=== PATIENT | female | born 1995 | race Caucasian/White ===

== ENCOUNTER 2025-05-27 19:04 | Inpatient (IN) | payer MEDICAID ==
[~2025-05-27] VITALS: Ht 160 cm; Wt 76.2 kg
[2025-05-27] MEDS: SODIUM CHLORIDE 0.9% 2,000 ML IV ONE (20:07)
[2025-05-27 20:14] LABS: PLATELET COUNT (AUTO) 419 K/uL (150-450); RED BLOOD CELL COUNT(AUTO) 3.76 MIL/uL (4.00-5.20); RED CELL DISTRIBUTION WIDTH 16.1 % (11.5-14.5); WHITE BLOOD COUNT (AUTO) 13.6 K/uL (4.5-11.0)
[2025-05-27 20:21] LABS: CALCIUM, TOTAL 8.9 mg/dL (8.8-10.5); CREATININE 0.65 mg/dL (0.60-1.30); GLOMERULAR FILTR. RATE CALC > 60 mL/min (>60); SODIUM SERUM 145 mmol/L (136-145); UREA NITROGEN, BLOOD 7 mg/dL (7-18)
[2025-05-27 20:22] LABS: GLUCOSE,RANDOM 46 mg/dL (70-110)
[2025-05-27] MEDS ORDERED: DEXTROSE 50%-WATER 25 GM/50 ML SYRINGE IVP ONE (20:25)
[2025-05-27 20:26] LABS: ALCOHOL, BLOOD (SERUM) < 3 mg/dL (0-10)
[2025-05-27 20:29] LABS: TROPONIN I-HIGH SENSITIVITY 4 ng/L (<51)
[2025-05-27 20:31] LABS: PHOSPHORUS 4.0 mg/dL (2.5-4.9)
[2025-05-27 20:32] LABS: ASPARTATE AMINOTRANSFERASE 11 U/L (15-37); HCG,QUANTITATIVE 2 mIU/mL (0-6); TOTAL PROTEIN, SERUM 6.8 g/dL (6.4-8.2)
[2025-05-27] MEDS: DEXTROSE 50%-WATER 25 GM/50 ML SYRINGE IVP ONE (20:37)
[2025-05-27 20:41] LABS: LACTIC ACID 1.5 mmol/L (0.4-2.0)
[2025-05-27 20:41] LABS: GLUCOMETER DEV NAME(LOC) ER.7; GLUCOSE,POINT OF CARE 52 MG/DL (70-110)
[2025-05-27 21:16] LABS: GLUCOMETER DEV NAME(LOC) ER.7; GLUCOSE,POINT OF CARE 134 MG/DL (70-110)
[2025-05-27] MEDS ORDERED: FREM225S SQ (21:34)
[2025-05-27] MEDS ORDERED: PRUC2TAB2 PO (21:34)
[2025-05-27] MEDS ORDERED: DICY20TA95 PO (21:34)
[2025-05-27] MEDS ORDERED: INSU100V SQ (21:34)
[2025-05-27] MEDS ORDERED: FAMO20 PO (21:34)
[2025-05-27] MEDS ORDERED: TIZA-211 PO (21:34)
[2025-05-27] MEDS ORDERED: OMEP-148 PO (21:34)
[2025-05-27] MEDS ORDERED: HYOS-28 PO (21:34)
[2025-05-27] MEDS ORDERED: IVAB7.5T PO (21:34)
[2025-05-27] MEDS ORDERED: ROSU10TA98 PO (21:34)
[2025-05-27] MEDS ORDERED: PREG50 PO (21:34)
[2025-05-27] MEDS ORDERED: CLON0.2T PO (21:34)
[2025-05-27] MEDS ORDERED: QUET100T PO (21:34)
[2025-05-27 21:50] LABS: GLUCOMETER DEV NAME(LOC) ER.7; GLUCOSE,POINT OF CARE 114 MG/DL (70-110)
[2025-05-27 22:16] LABS: GLUCOMETER DEV NAME(LOC) ER.7; GLUCOSE,POINT OF CARE 99 MG/DL (70-110)
[2025-05-27 22:51] LABS: GLUCOMETER DEV NAME(LOC) ER.7; GLUCOSE,POINT OF CARE 98 MG/DL (70-110)
[2025-05-27 23:55] LABS: GLUCOMETER DEV NAME(LOC) ER.7; GLUCOSE,POINT OF CARE 94 MG/DL (70-110)
[2025-05-28 02:36] LABS: GLUCOMETER DEV NAME(LOC) ER.7; GLUCOSE,POINT OF CARE 91 MG/DL (70-110)
[2025-05-28 04:46] LABS: GLUCOMETER DEV NAME(LOC) ER.7; GLUCOSE,POINT OF CARE 93 MG/DL (70-110)
[2025-05-28 05:25] VITALS: BP 104/66; PULSE 99; RESP 17; TEMP 98.1; O2SAT 99
[2025-05-28 08:00] VITALS: BP 100/62; PULSE 96; RESP 18; TEMP 98; O2SAT 98
[2025-05-28] MEDS: NICOTINE 21 MG/24 HOUR PATCH TD SCH (09:20)
[2025-05-28 10:24] LABS: APPEARANCE,URINE CLEAR (CLEAR); GLUCOSE, URINE (UA) NEGATIVE (NEGATIVE); LEUKOCYTE ESTERASE ,URINE NEGATIVE (NEGATIVE); NITRATE,URINE NEGATIVE (NEGATIVE); OCCULT BLOOD,URINE NEGATIVE (NEGATIVE); PH,URINE DRUG SCREEN 7.5 (5.0-8.0); SPECIFIC GRAVITIY, URINE 1.011 (1.003-1.030)
[2025-05-28 10:29] LABS: ALCOHOL, URINE DRUG SCREEN NEGATIVE (NEGATIVE); AMPHET/METH SCREEN,URINE NEGATIVE (NEGATIVE); BARBITURATE SCREEN, URINE NEGATIVE (NEGATIVE); CANNABINOID SCREEN,URINE NEGATIVE (NEGATIVE); COCAINE SCREEN,URINE NEGATIVE (NEGATIVE); METHADONE SCREEN, URINE NEGATIVE (NEGATIVE)
[2025-05-28 16:19] VITALS: BP 101/70; PULSE 92; RESP 18; TEMP 98; O2SAT 97
[2025-05-28] MEDS ORDERED: DEXTROSE 50%-WATER 25 GM/50 ML SYRINGE IVP PRN (17:30)
[2025-05-28 19:20] VITALS: BP 130/85; PULSE 115; RESP 18; TEMP 99; O2SAT 100
[2025-05-28 20:00] VITALS: PULSE 98
[2025-05-28 20:40] LABS: GLUCOMETER DEV NAME(LOC) 6N.2C; GLUCOSE,POINT OF CARE 112 MG/DL (70-110)
[2025-05-28 20:40] LABS: GLUCOSE,POINT OF CARE 129 MG/DL (70-110)
[2025-05-28 21:00] VITALS: TEMP 98.6
[2025-05-28] MEDS: INSULIN LISPRO 100 UNITS/ML SQ PRN (21:22)
[2025-05-29 04:54] VITALS: BP 115/68; PULSE 100; RESP 18; TEMP 98.4; O2SAT 98
[2025-05-29] MEDS: ONDANSETRON HCL 4 MG/2 ML VIAL IVP PRN (06:25)
[2025-05-29 07:51] VITALS: BP 118/71; PULSE 104; RESP 18; TEMP 98.1; O2SAT 99
[2025-05-29] MEDS: BUPRENORPHINE HCL/NALOXONE HCL 8-2 MG SUBLINGUAL TABLET SL SCH (14:28)
[2025-05-29 15:24] VITALS: BP 118/80; PULSE 104; RESP 18; TEMP 98.3; O2SAT 98
[2025-05-29 15:51] LABS: GLUCOSE,POINT OF CARE 129 MG/DL (70-110)
[2025-05-29 15:51] LABS: GLUCOSE,POINT OF CARE 104 MG/DL (70-110)
[2025-05-29] MEDS ORDERED: MAGNESIUM HYDROXIDE SUSPENSION 30 ML UDCUP PO PRN (19:15)
[2025-05-29] MEDS ORDERED: ACETAMINOPHEN 325 MG TABLET PO PRN (19:15)
[2025-05-29] MEDS ORDERED: BISACODYL 10 MG RECTAL RECTAL SUPPOSITORY PR PRN (19:15)
[2025-05-29] MEDS ORDERED: IPRATROPIUM BROMIDE 0.5 MG/2.5 ML NEB SOLUTION NEB PRN (19:15)
[2025-05-29] MEDS ORDERED: ZOLPIDEM TARTRATE 5 MG TABLET PO PRN (19:15)
[2025-05-29] MEDS ORDERED: ALBUTEROL SULFATE 2.5 MG/0.5 ML NEB SOLUTION NEB PRN (19:15)
[2025-05-29] MEDS ORDERED: LINA290C PO (19:23)
[2025-05-29] MEDS ORDERED: EPIN0.1519 IM (19:23)
[2025-05-29] MEDS ORDERED: QUET100T34 PO (19:23)
[2025-05-29] MEDS ORDERED: GLUC1VIA21 IM (19:23)
[2025-05-29] MEDS ORDERED: EPIN0.3P19 IM (19:23)
[2025-05-29] MEDS ORDERED: AMPH15TA3 PO (19:23)
[2025-05-29] MEDS ORDERED: LACT10SO9 PO (19:23)
[2025-05-29] MEDS ORDERED: LISD40TA2 PO (19:23)
[2025-05-29 19:30] VITALS: BP 98/70; PULSE 82; RESP 18; TEMP 98.1; O2SAT 97
[2025-05-29 21:00] VITALS: BP 96/58; PULSE 94; RESP 18; O2SAT 95
[2025-05-29] MEDS: OMEPRAZOLE 20 MG CAPSULE PO ONE (21:12)
[2025-05-29 21:45] LABS: GLUCOMETER DEV NAME(LOC) 6N.2C; GLUCOSE,POINT OF CARE 110 MG/DL (70-110)
[2025-05-29 21:45] LABS: GLUCOMETER DEV NAME(LOC) 6N.2C; GLUCOSE,POINT OF CARE 123 MG/DL (70-110)
[2025-05-30] MEDS: HEPARIN SODIUM,PORCINE 5,000 UNITS/ML VIAL SQ SCH (00:01)
[2025-05-30] MEDS: ONDANSETRON HCL 4 MG/2 ML VIAL IVP PRN (02:46)
[2025-05-30 05:15] VITALS: BP 102/59; PULSE 97; RESP 18; TEMP 97.9; O2SAT 95
[2025-05-30 07:42] VITALS: BP 98/65; PULSE 70; RESP 18; TEMP 97.7; O2SAT 100
[2025-05-30] MEDS ORDERED: OMEPRAZOLE 20 MG CAPSULE PO SCH (09:00)
[2025-05-30] MEDS: ROSUVASTATIN CALCIUM 10 MG TABLET PO SCH (09:33)
[2025-05-30] MEDS: OMEPRAZOLE 20 MG CAPSULE PO SCH (09:33)
[2025-05-30] MEDS ORDERED: BUPR1FIL3 SL (10:07)
[2025-05-30 11:45] LABS: GLUCOSE,POINT OF CARE 110 MG/DL (70-110)
== END 2025-05-30 11:45 | disposition home or self-care (01) | DRG 817 ==
LOC: EMS 19:07 → EDH 23:48 → 5N 05-28 05:04 → 6S 05-28 12:27
PROVIDERS: ADMIT Hospitalist; ATTEND Hospitalist
DX: T42.6X2A Poisoning by other antiepileptic and sedative-hypnotic drugs, intentional self-harm, initial encounter (principal); F33.2 Major depressive disorder, recurrent severe without psychotic features; D64.9 Anemia, unspecified; D72.829 Elevated white blood cell count, unspecified; E10.43 Type 1 diabetes mellitus with diabetic autonomic (poly)neuropathy; E10.649 Type 1 diabetes mellitus with hypoglycemia without coma; F11.20 Opioid dependence, uncomplicated; I10 Essential (primary) hypertension; F13.20 Sedative, hypnotic or anxiolytic dependence, uncomplicated; K58.9 Irritable bowel syndrome, unspecified; F41.9 Anxiety disorder, unspecified; K31.84 Gastroparesis; Z56.0 Unemployment, unspecified; Z59.71 Insufficient health insurance coverage; Z88.1 Allergy status to other antibiotic agents; Z91.51 Personal history of suicidal behavior; Z93.1 Gastrostomy status; Y92.89 Other specified places as the place of occurrence of the external cause; Z88.8 Allergy status to other drugs, medicaments and biological substances; Z79.899 Other long term (current) drug therapy
CPT/HCPCS: 80053; 80307; 81003; 82962; 83605; 83735; 84100; 84484; 84702; 85025; 85610; 87040; 93005; 99291; G0378; G0480; G0481; J1644; J2405